=== PATIENT | male | born 1995 | race Caucasian/White ===

== ENCOUNTER 2017-10-19 04:21 | Emergency (ER) | payer OTHER ==
--- NOTE | 2017-10-19 04:37 | EDM.PDOC ---
ED HPI GENERAL MEDICAL PROBLEM - General Chief Complaint: General Stated Complaint: MIGRAIN AND UNABLE TO KEEP FLUIDS DOWN ALSO DIZZY Time Seen by Provider: 10/19/17 04:28 - History of Present Illness INITIAL COMMENTS - FREE TEXT/NARRATIVE: 22-year-old male presents emergency room with a 2 day history of nausea vomiting and a migraine. Patient has a history of migraine headaches when he was younger has been bothered by a recently he's developed a headache did ask very much like a migraine. This was triggered by nausea and vomiting over the last couple of days. He has not been able to keep anything down. He is not having any abdominal pain other than associated with vomiting. Patient denies any diarrhea at this point. Headache Pain Score (Numeric/FACES): 6 - Related Data Allergies Allergy/AdvReac Type Severity Reaction Status Date / Time No Known Allergies Allergy Verified 10/19/17 04:29 Home Meds: Home Meds Ondansetron [Zofran ODT] 4 mg PO Q4H PRN #10 tab.dis 10/19/17 [Rx] ED ROS GENERAL - Review of Systems Review Of Systems: See Below Constitutional: Reports: No Symptoms HEENT: Reports: No Symptoms Respiratory: Reports: No Symptoms Cardiovascular: Reports: No Symptoms GI/Abdominal: Reports: Nausea, Vomiting. Denies: Abdominal Pain, Constipation, Diarrhea : Reports: No Symptoms Musculoskeletal: Reports: No Symptoms Skin: Reports: No Symptoms Neurological: Reports: Dizziness, Headache Psychiatric: Reports: No Symptoms ED EXAM, GENERAL - Physical Exam Exam: See Below Exam Limited By: No Limitations General Appearance: Alert, No Apparent Distress Eye Exam: Bilateral Eye: Normal Inspection Ears: Normal External Exam, Normal Canal, Normal TMs Nose: Normal Inspection, Normal Mucosa, No Blood Throat/Mouth: Normal Inspection, Normal Lips, Normal Teeth, Normal Gums, Normal Oropharynx, Normal Voice, No Airway Compromise Head: Atraumatic, Normocephalic Neck: Normal Inspection, Supple, Non-Tender, Full Range of Motion. No: Lymphadenopathy (L), Lymphadenopathy (R) Respiratory/Chest: No Respiratory Distress, Lungs Clear, Normal Breath Sounds Cardiovascular: Regular Rate, Rhythm, No Edema, No Murmur GI/Abdominal: Normal Bowel Sounds, Soft, Non-Tender Back Exam: Normal Inspection. No: CVA Tenderness (L), CVA Tenderness (R) Extremities: Normal Inspection Neurological: Alert, Oriented, CN II-XII Intact, Normal Cognition, No Motor/ Sensory Deficits Skin Exam: Warm, Dry, Intact Course - Vital Signs Last Recorded V/S: Last Vital Signs Temp 36.6 C 10/19/17 04:27 Pulse 84 10/19/17 04:27 Resp 16 10/19/17 04:27 BP 125/76 10/19/17 04:27 Pulse Ox 96 10/19/17 04:27 - Orders/Labs/Meds Meds: Medications Discontinued Medications Generic Name Dose Route Start Last Admin Trade Name Freq PRN Reason Stop Dose Admin Diphenhydramine HCl 50 mg 10/19/17 04:45 10/19/17 05:04 Benadryl IVPUSH 10/19/17 04:46 50 mg ONETIME ONE Administration Lactated Ringer's 1,000 mls @ 999 mls/hr 10/19/17 04:45 10/19/17 05:03 Ringers, Lactated IV 10/19/17 05:45 999 mls/hr .BOLUS ONE Administration Ondansetron HCl 4 mg 10/19/17 04:45 10/19/17 05:04 Zofran IVPUSH 10/19/17 04:46 4 mg ONETIME ONE Administration - Re-Assessments/Exams Free Text/Narrative Re-Assessment/Exam: 10/19/17 04:52 This is not all the worst headache is ever had he's admitting much worse. Discussed treatment. He would assume avoid lab and imaging which probably would not be beneficial in his case. We'll give him some IV fluids Benadryl and Zofran. If feeling better anticipate discharging with some Zofran. 10/19/17 05:30 Nausea much better his headache is basically gone fluid still running 10/19/17 06:05 Patient continues to do well fluids and we will discharge. I will give him a Zofran ODT now so he has plenty of time to get the prescription filled. Departure - Departure Time of Disposition: 06:06 Disposition: Home, Self-Care 01 Clinical Impression: Gastroenteritis, Cephalgia - Discharge Information Prescriptions: Ondansetron [Zofran ODT] 4 mg PO Q4H PRN #10 tab.dis PRN Reason: Nausea/Vomiting Referrals: PCP,None [Primary Care Provider] - Forms: ED Department Discharge Additional Instructions: Return to the emergency room with any questions problems worsening symptoms You have been given a prescription for Zofran ODT this is for nausea and vomiting use 1 every 4 hours if needed for nausea and vomiting. Push lots of fluids. If needed follow-up in the Hospital clinic. [phone]
[2017-10-19] MEDS ORDERED: diphenhydrAMINE 50 MG/ML SDV IVPUSH ONE (04:45)
[2017-10-19] MEDS ORDERED: Lactated Ringers 1,000 ML IV ONE (04:45)
[2017-10-19] MEDS ORDERED: Ondansetron 4 MG/2 ML SDV IVPUSH ONE (04:45)
[2017-10-19] MEDS ORDERED: Ondansetron 4 MG Tab.DIS PO ONE (06:05)
== END 2017-10-19 06:15 | disposition home or self-care (01) ==
LOC: JD.ED 04:21
DX: K52.9 Noninfective gastroenteritis and colitis, unspecified (principal); R51 Headache
CPT/HCPCS: 96361; 96374; 96375; 99284; A9270; J1200; J2405; J7120